=== PATIENT | female | born 1950 | race Caucasian/White ===

== ENCOUNTER 2020-01-10 15:07 | Inpatient (IN) | payer MEDICARE, OTHER ==
[~2020-01-10] VITALS: Ht 165.1 cm; Wt 69.9 kg
[2020-01-10 15:30] VITALS: BP 120/86
[2020-01-10] MEDS ORDERED: CYMBALTA60 MG PO (15:35)
[2020-01-10] MEDS ORDERED: ACCUPRIL5 MG PO ×2 (15:35→15:36)
[2020-01-10 16:01] LABS: ABSOLUTE LYMPHOCYTES 0.8 thou/uL (0.8-5.3); ABSOLUTE MONOCYTES 0.3 thou/uL (0.0-1.2); ABSOLUTE NEUTROPHILS 4.2 thou/uL (1.6-8.1); BASOPHILS 0.3 %; HEMATOCRIT 44.1 % (37.0-47.0); HEMOGLOBIN 14.8 gm/dL (12.0-15.0); LYMPHOCYTES 15.1 %; MCH 30.5 pg (26.0-34.0); MCHC 33.5 g/dL (28.0-37.0); MCV 90.9 fL (80.0-100.0); MONOCYTES 5.8 %; MPV 7.3 fl. (7.2-11.1); NUCLEATED RBCS 0 /100WBC; PLATELET COUNT* 210 thou/uL (150-400); POLYS 78.8 %; RBC 4.85 mil/uL (4.20-5.00); RDW-CV 13.8 % (10.5-14.5); WBC 5.4 thou/uL (4.0-11.0)
[2020-01-10 16:08] LABS: CALCIUM 8.1 mg/dL (8.5-10.1); CREATININE 0.6 mg/dL (0.6-1.3); POTASSIUM 3.2 mmol/L (3.5-5.1)
[2020-01-10 16:13] LABS: ALBUMIN 3.1 g/dL (3.4-5.0); TOTAL BILIRUBIN 0.4 mg/dL (<0.1-1.0); TOTAL PROTEIN 7.2 g/dL (6.4-8.2)
[2020-01-10 16:16] LABS: ACETAMINOPHEN < 2 ug/mL (10-30); ALCOHOL < 10 mg/dL (<10); SALICYLATE < 2.8 mg/dL (2.8-20.0)
[2020-01-10 17:00] LABS: URINE BLOOD NEGATIVE (Negative); URINE CLARITY CLEAR; URINE COLOR YELLOW; URINE GLUCOSE-RANDOM NEGATIVE (Negative); URINE KETONES 3+ (Negative); URINE LEUKOCYTES-REFLEX NEGATIVE (Negative); URINE NITRITE-REFLEX NEGATIVE (Negative); URINE PROTEIN 1+ (Negative); URINE SPECIFIC GRAVITY 1.025 (1.005-1.030); URINE UROBILINOGEN 0.2 E.U./dl (0.2-1.0)
[2020-01-10 17:01] LABS: ICTOTEST (BILI CONFIRMATORY) Negative (Negative); URINE BILIRUBIN 1+ (Negative)
[2020-01-10 17:08] LABS: AMP/METHAMP Negative (Negative); BARBITURATES Negative (Negative); BENZODIAZEPINES POSITIVE (Negative); COCAINE Negative (Negative); METHADONE Negative (Negative); OPIATES Negative (Negative); PCP Negative (Negative); THC Negative (Negative)
[2020-01-10 23:30] VITALS: BP 128/86
[2020-01-11 04:18] VITALS: BP 111/65
[2020-01-11 08:00] VITALS: BP 116/68
--- NOTE | 2020-01-11 10:26 | EKG ---
[place] [address] ELECTROCARDIOGRAM REPORT Name: RAYMOND LEONARDO Room: [place] [address] ADM IN [facility]#: [id number] Admission: 01/10/20 Attend Phys: Lisy Franks, Discharge: Date of : 54 Date of Service: 01/10/201911 Report #: [id number] THIS REPORT FOR: //name// [facility] ED Test Date: 2020-01-10 Test Time: 19:12:23 Pat Name: RAYMOND LEONARDO Department: Room: [place] [address] Gender: F Pharmacy Customer Care Specialist: [place] : 1950 Requested By: Rhea Crisostomo Order Number: [id number] MD: Jerel Soler Measurements Intervals [place] Rate: 101 P: 37 [place]: 137 QRS: -31 QRSD: 92 T: 32 QT: 334 QTc: 433 Interpretive Statements Sinus tachycardia Left axis deviation Abnormal R-wave progression, late transition No previous ECG available for comparison Electronically Signed On 01-11-2020 10:26:28 [employer] by Jerel Soler [email or web address] <ELECTRONICALLY SIGNED> By: Jerel Soler MD, FACC 01/11/20 1026 11 11 Jerel Soler MD, FAC /EPI
[2020-01-11 10:35] VITALS: BP 120/83
[2020-01-11 16:19] LABS: POTASSIUM 3.6 mmol/L (3.5-5.1)
[2020-01-11 16:20] LABS: CALCIUM 7.7 mg/dL (8.5-10.1); CREATININE 0.5 mg/dL (0.6-1.3); PHOSPHORUS* 3.2 mg/dL (2.5-4.9)
[2020-01-11 16:30] VITALS: BP 128/75
[2020-01-11 19:45] VITALS: BP 127/81
[2020-01-12] VITALS: BP 111/71; BP 123/81
[2020-01-12 08:00] VITALS: BP 137/82
[2020-01-12 12:21] VITALS: BP 144/81
[2020-01-12 15:47] VITALS: BP 148/95
[2020-01-12 20:30] VITALS: BP 140/92
[2020-01-13] VITALS: BP 148/94
[2020-01-13 04:00] VITALS: BP 135/85
[2020-01-13 07:30] VITALS: BP 132/86
[2020-01-13 14:57] VITALS: BP 142/86
[2020-01-13 16:01] LABS: ALBUMIN 2.8 g/dL (3.4-5.0); CALCIUM 8.4 mg/dL (8.5-10.1); CREATININE 0.5 mg/dL (0.6-1.3); POTASSIUM 3.8 mmol/L (3.5-5.1); TOTAL BILIRUBIN 0.4 mg/dL (<0.1-1.0); TOTAL PROTEIN 6.8 g/dL (6.4-8.2)
[2020-01-13 16:02] LABS: HEMATOCRIT 40.8 % (37.0-47.0); HEMOGLOBIN 13.7 gm/dL (12.0-15.0); MCH 29.9 pg (26.0-34.0); MCHC 33.5 g/dL (28.0-37.0); MCV 89.4 fL (80.0-100.0); MPV 7.6 fl. (7.2-11.1); NUCLEATED RBCS 0 /100WBC; RBC 4.56 mil/uL (4.20-5.00); RDW-CV 13.6 % (10.5-14.5); WBC 9.2 thou/uL (4.0-11.0)
[2020-01-13 16:15] LABS: PLATELET COUNT* 307 thou/uL (150-400)
[2020-01-13 16:58] LABS: ABSOLUTE LYMPHOCYTES 0.7 thou/uL (0.8-5.3); ABSOLUTE MONOCYTES 0.4 thou/uL (0.0-1.2); ABSOLUTE NEUTROPHILS 8.1 thou/uL (1.6-8.1); PLATELET ESTIMATE ADEQUATE
[2020-01-13 19:19] VITALS: BP 145/83
[2020-01-13 20:00] VITALS: BP 150/90
[2020-01-14 01:04] VITALS: BP 152/91
[2020-01-14 05:37] VITALS: BP 148/95
[2020-01-14 07:45] VITALS: BP 143/88
[2020-01-14 12:00] VITALS: BP 142/106
[2020-01-14 18:09] VITALS: BP 159/98
[2020-01-14 20:15] VITALS: BP 141/81
[2020-01-15 00:23] VITALS: BP 139/90
[2020-01-15 04:00] VITALS: BP 141/83
[2020-01-15] MEDS ORDERED: LEVOFLOXACIN500 MG PO (10:35)
[2020-01-15] MEDS ORDERED: PREDNISONE10 MG PO (10:35)
[2020-01-15] MEDS ORDERED: ESCITALOPRAM OX10 MG PO (10:35)
[2020-01-15] MEDS ORDERED: NEURONTIN 300M300 M2 PO (10:35)
[2020-01-15 12:00] VITALS: BP 164/55
[2020-01-15 15:44] VITALS: BP 141/83
[2020-01-15 18:37] VITALS: BP 141/83
== END 2020-01-15 17:50 | disposition home or self-care (01) | DRG 177 ==
LOC: M.ERS 15:07 → M.TBA-ER 18:56 → M.ORTHSURG 01-11 10:39
PROVIDERS: Emergency Medicine Emergency Medical Services; Internal Medicine; ADMIT Internal Medicine; ATTEND Internal Medicine
DX: U07.1 COVID-19 (principal); J12.89 Other viral pneumonia; J96.01 Acute respiratory failure with hypoxia; R45.851 Suicidal ideations; F32.9 Major depressive disorder, single episode, unspecified; I10 Essential (primary) hypertension; E78.00 Pure hypercholesterolemia, unspecified; F41.9 Anxiety disorder, unspecified; Z79.899 Other long term (current) drug therapy; Z23 Encounter for immunization